=== PATIENT | female | born 1955 | race Caucasian/White ===

== ENCOUNTER 2018-07-02 16:33 | Emergency (ER) | payer MEDICARE, BC, OTHER ==
[~2018-07-02] VITALS: Ht 162.6 cm; Wt 81.0 kg
[~2018-07-02 16:33] MED LIST: IBUP-1985 PO; KEP500T PO; TEMA30CA PO
[2018-07-02] MEDS ORDERED: levetiracetam inj 1,000 MG in normal saline 100ml IV soln 90 ML IV ONE (18:35)
[2018-07-02] MEDS ORDERED: LEVE250T4 PO (18:39)
[2018-07-02 19:20] VITALS: BP 134/81
== END 2018-07-02 19:23 | disposition home or self-care (01) ==
LOC: ER 16:34
DX: S00.81XA Abrasion of other part of head, initial encounter (principal); G40.909 Epilepsy, unspecified, not intractable, without status epilepticus; I10 Essential (primary) hypertension; Z90.49 Acquired absence of other specified parts of digestive tract; Z90.710 Acquired absence of both cervix and uterus; Z98.890 Other specified postprocedural states; Z79.899 Other long term (current) drug therapy; W22.8XXA Striking against or struck by other objects, initial encounter; Y93.89 Activity, other specified; Y92.89 Other specified places as the place of occurrence of the external cause; Y99.9 Unspecified external cause status
CPT/HCPCS: 70450; 96374; 99284; J1953; J7030

== ENCOUNTER 2018-07-10 16:40 | Emergency (ER) | payer MEDICARE, BC ==
[~2018-07-10] VITALS: Ht 162.6 cm; Wt 74.5 kg
[~2018-07-10 16:40] MED LIST changes: +LEVE250T4 PO
[2018-07-10] MEDS ORDERED: buprenorphine/naloxone 8mg/2mg SL tablet SL ONE ×2 (17:15→18:20)
[2018-07-10] MEDS ORDERED: BUPR1FIL3 SL (18:29)
[2018-07-10 18:53] VITALS: BP 154/67
== END 2018-07-10 19:01 | disposition home or self-care (01) ==
LOC: ER 16:40
DX: F11.23 Opioid dependence with withdrawal (principal); R55 Syncope and collapse; F41.0 Panic disorder [episodic paroxysmal anxiety]; I10 Essential (primary) hypertension; G89.29 Other chronic pain; F41.9 Anxiety disorder, unspecified; F32.9 Major depressive disorder, single episode, unspecified; Z90.49 Acquired absence of other specified parts of digestive tract; Z90.710 Acquired absence of both cervix and uterus; Z98.890 Other specified postprocedural states; Z79.899 Other long term (current) drug therapy
CPT/HCPCS: 93005; 99283

== ENCOUNTER 2018-12-23 19:21 | Emergency (ER) | payer BC, MEDICARE ==
[~2018-12-23] VITALS: Ht 162.6 cm; Wt 75.9 kg
[2018-12-23 22:26] VITALS: BP 114/65
== END 2018-12-23 22:27 | disposition home or self-care (01) ==
LOC: ER 19:22
DX: S01.81XA Laceration without foreign body of other part of head, initial encounter (principal); I10 Essential (primary) hypertension; G89.29 Other chronic pain; Z79.1 Long term (current) use of non-steroidal anti-inflammatories (NSAID); Z79.899 Other long term (current) drug therapy; Z87.442 Personal history of urinary calculi; Z90.49 Acquired absence of other specified parts of digestive tract; Z90.710 Acquired absence of both cervix and uterus; Z98.890 Other specified postprocedural states; W18.39XA Other fall on same level, initial encounter; Y93.89 Activity, other specified; Y92.89 Other specified places as the place of occurrence of the external cause; Y99.8 Other external cause status
CPT/HCPCS: 12013; 70450; 99284

== ENCOUNTER 2019-02-02 09:44 | Inpatient (IN) | payer BC, MEDICARE ==
[~2019-02-02] VITALS: Ht 162.6 cm; Wt 75.9 kg
[2019-02-02] MEDS ORDERED: ondansetron/PF 4mg/2ml inj IV ONE (10:40)
[2019-02-02] MEDS ORDERED: normal saline 1000ML IV soln IVB ONE (10:40)
[2019-02-02] MEDS: morphine 4 MG/ML inj SYRINge IV PRN ×2 (11:07→14:08)
[2019-02-02 11:19] LABS: BASOPHILS % (AUTO) 0.2 % (0-1); EOSINOPHILS % (AUTO) 0.1 % (0-6); HEMATOCRIT 40.8 % (35.0-45.0); HEMOGLOBIN 13.4 g/dl (12.0-16.0); LYMPHOCYTES # (AUTO) 1.2 X10'3 (1.1-4.8); LYMPHOCYTES % (AUTO) 8.3 % (21-51); MEAN CORPUSCULAR HEMOGLOBIN 28.1 PG (27.0-31.0); MEAN CORPUSCULAR HGB CONC 32.9 g/dL (33.0-36.5); MEAN CORPUSCULAR VOLUME 85.6 FL (78-98); MEAN PLATELET VOLUME 7.5 FL (7.4-10.4); MONOCYTES # (AUTO) 0.6 X10'3 (0-0.9); NEUTROPHILS # (AUTO) 12.8 X10'3 (1.8-7.7); NEUTROPHILS % (AUTO) 87.4 % (42-75); PLATELET COUNT 336 X10'3 (140-440); RED BLOOD COUNT 4.77 X10'6 (4.20-5.60); RED CELL DISTRIBUTION WIDTH 13.9 % (11.5-14.5); WHITE BLOOD COUNT 14.6 X10'3 (4.5-11.0)
[2019-02-02 11:35] LABS: ALANINE AMINOTRANSFERASE 28 U/L (12-78); ALBUMIN 3.7 G/DL (3.4-5.0); ALBUMIN/GLOBULIN RATIO 0.9 (1.1-1.5); ALKALINE PHOSPHATASE 94 IU/L (46-116); ANION GAP 6 (8-16); ASPARTATE AMINO TRANSFERASE 22 U/L (10-37); BILIRUBIN,TOTAL 0.3 MG/DL (0.1-1.0); BLOOD UREA NITROGEN 13 MG/DL (7-18); BUN/CREATININE RATIO 17.3 (6.6-38.0); CALCIUM 9.3 MG/DL (8.5-10.1); CHLORIDE 102 MMOL/L (99-107); CREATININE 0.75 MG/DL (0.40-0.90); GLUCOSE 142 MG/DL (70-104); POTASSIUM 3.6 MMOL/L (3.5-5.1); SODIUM 140 MMOL/L (135-145); TOTAL CARBON DIOXIDE 31.9 MMOL/L (24-32); TOTAL PROTEIN 7.9 G/DL (6.4-8.2); eGFR 78 ML/MIN
[2019-02-02 12:31] LABS: CLARITY,URINE SLIGHTLY CLOUDY (Clear); COLOR,URINE YELLOW (Yellow); GLUCOSE, URINE NEGATIVE (Neg); KETONES,URINE 15 mg/dl (Neg); LEUKOCYTE ESTERASE ,URINE NEGATIVE (Neg); NITRITES, URINE NEGATIVE (Neg); OCCULT BLOOD,URINE NEGATIVE (Neg); PH,URINE 8.5 (4.8-8.0); PROTEIN,URINE 30 mg/dl (Neg); UA COLLECTION TYPE CLN CATCH MIDSTREAM; UROBILINOGEN,URINE 0.2 E.U/dL (0.2-1.0)
[2019-02-02 12:37] LABS: URINE AMPHETAMINE SCREEN NEGATIVE (Neg); URINE BARBITUATE SCREEN NEGATIVE (Neg); URINE BENZODIAZEPINES SCREEN NEGATIVE (Neg); URINE CANNABINOID SCREEN NEGATIVE (Neg); URINE COCAINE SCREEN NEGATIVE (Neg); URINE METHADONE SCREEN NEGATIVE (Neg); URINE OPIATE SCREEN POSITIVE (Neg); URINE PHENCYCLIDINE SCREEN NEGATIVE (Neg)
[2019-02-02 12:42] LABS: AMORPHOUS PHOSPHATES 3+; BACTERIA,URINE NONE SEEN /HPF (Neg); MUCUS STRANDS MANY /LPF (Neg); RBC,URINE NONE SEEN /HPF (0-2); SQUAMOUS EPITHELIAL CELL,UR MODERATE /LPF (FEW); WBC,URINE 0-4 /HPF (0-4)
[2019-02-02 12:43] LABS: HYALINE CASTS 0-3 /LPF (NEGATIVE)
[2019-02-02] MEDS ORDERED: morphine 2 MG/ML inj. syringe IV PRN ×2 (14:50)
[2019-02-02] MEDS ORDERED: ondansetron/PF 4mg/2ml inj IV PRN (14:50)
[2019-02-02] MEDS ORDERED: magnesium hydroxide 30ml (MOM) UD suspension PO PRN (14:50)
[2019-02-02] MEDS ORDERED: mag hydrox/Alum hydrox/simeth 30ml oral suspension PO PRN (14:50)
[2019-02-02] MEDS ORDERED: acetaminophen 325mg tablet PO PRN (14:50)
[2019-02-02] MEDS ORDERED: BUPR1TAB36 PO (15:06)
[2019-02-02] MEDS ORDERED: NORT10CA2 PO (15:06)
[2019-02-02] MEDS ORDERED: ASPI-611 PO (15:06)
[2019-02-02] MEDS ORDERED: THYR60TA2 PO (15:06)
[2019-02-02] MEDS ORDERED: DIVA250T8 PO (15:06)
[2019-02-02] MEDS ORDERED: ENAL10TA PO (15:06)
[2019-02-02] MEDS ORDERED: TRAZ-219 PO (15:06)
--- NOTE | 2019-02-02 15:35 | NUR ---
sister katelynn [phone]
[2019-02-02] MEDS: normal saline 1000ml 1,000 ML IV SCH (15:37)
--- NOTE | 2019-02-02 16:45 | NUR ---
received report from SALAZAR evans. awaiting patient arrival.
--- NOTE | 2019-02-02 17:15 | NUR ---
BP 174/90 harriett ARNETT, IV hydralazine given per orders.
[2019-02-02 17:44] VITALS: BP 174/90
[2019-02-02] MEDS ORDERED: hydrALAZINE 20mg/ml inj. IV PRN (17:50)
--- NOTE | 2019-02-02 18:05 | NUR ---
Problems reprioritized. Patient report given, questions answered & plan of care reviewed with SALAZAR Sue.
[2019-02-02 20:00] VITALS: BP 145/74
[2019-02-02] MEDS: nortriptyline 10mg capsule PO SCH (21:58)
[2019-02-02] MEDS: traZODone 50mg tablet PO SCH (21:58)
[2019-02-02] MEDS: temazepam 15mg capsule PO PRN (21:59)
[2019-02-02] MEDS: divalproex sod 250mg ER (24-hour) tablet PO SCH (22:01)
--- NOTE | 2019-02-02 22:06 | NUR ---
N/G CLAMPED FOR NIGHT PO MEDS
[2019-02-03] VITALS: BP 101/71
[2019-02-03] MEDS: normal saline 1000ml 1,000 ML IV SCH ×4 (01:01→21:52)
[2019-02-03] MEDS ORDERED: diatr meglu/diatrizoate 30ml oral sol.-(3 dose) bottle PO SCH (03:00)
[2019-02-03 05:57] LABS: BASOPHILS % (AUTO) 0.3 % (0-1); EOSINOPHILS # (AUTO) 0.1 X10'3 (0-0.9); EOSINOPHILS % (AUTO) 0.8 % (0-6); HEMATOCRIT 35.2 % (35.0-45.0); HEMOGLOBIN 11.8 g/dl (12.0-16.0); LYMPHOCYTES # (AUTO) 2.5 X10'3 (1.1-4.8); LYMPHOCYTES % (AUTO) 24.3 % (21-51); MEAN CORPUSCULAR HEMOGLOBIN 28.9 PG (27.0-31.0); MEAN CORPUSCULAR HGB CONC 33.6 g/dL (33.0-36.5); MEAN CORPUSCULAR VOLUME 86.1 FL (78-98); MEAN PLATELET VOLUME 7.4 FL (7.4-10.4); MONOCYTES # (AUTO) 0.8 X10'3 (0-0.9); MONOCYTES % (AUTO) 7.3 % (2-12); NEUTROPHILS % (AUTO) 67.3 % (42-75); PLATELET COUNT 283 X10'3 (140-440); RED BLOOD COUNT 4.09 X10'6 (4.20-5.60); RED CELL DISTRIBUTION WIDTH 14.1 % (11.5-14.5); WHITE BLOOD COUNT 10.5 X10'3 (4.5-11.0)
--- NOTE | 2019-02-03 06:18 | NUR ---
Problems reprioritized. Patient report given, questions answered & plan of care reviewed with SALAZAR Moreland.
[2019-02-03 06:46] LABS: ANION GAP 7 (8-16); BLOOD UREA NITROGEN 12 MG/DL (7-18); BUN/CREATININE RATIO 17.1 (6.6-38.0); CALCIUM 7.9 MG/DL (8.5-10.1); CHLORIDE 106 MMOL/L (99-107); GLUCOSE 92 MG/DL (70-104); POTASSIUM 3.5 MMOL/L (3.5-5.1); SODIUM 141 MMOL/L (135-145); TOTAL CARBON DIOXIDE 27.7 MMOL/L (24-32); eGFR 84 ML/MIN
[2019-02-03 07:10] VITALS: BP 120/68
[2019-02-03] MEDS: diatr meglu/diatrizoate 30ml oral sol.-(3 dose) bottle PO SCH ×3 (07:32→10:30)
[2019-02-03] MEDS: divalproex sod 250mg ER (24-hour) tablet PO SCH ×2 (07:33→20:40)
[2019-02-03] MEDS: thyroid, pork 30mg tablet PO SCH (07:34)
[2019-02-03] MEDS: lisinopril 10 MG tablet PO SCH (07:34)
[2019-02-03] MEDS ORDERED: buprenorphine/naloxone 8mg/2mg SL tablet SL SCH (08:00)
--- NOTE | 2019-02-03 11:22 | NUR ---
Patient back from CT scan. IV re-connected and NG hooked back to low, continuous suction.
[2019-02-03 11:30] VITALS: BP 152/75
--- NOTE | 2019-02-03 18:11 | NUR ---
Problems reprioritized. Patient report given, questions answered & plan of care reviewed with SALAZAR NAVAS.
[2019-02-03 20:00] VITALS: BP 154/76
[2019-02-03] MEDS: temazepam 15mg capsule PO PRN (20:40)
[2019-02-03] MEDS: nortriptyline 10mg capsule PO SCH (20:40)
[2019-02-03] MEDS: traZODone 50mg tablet PO SCH (20:40)
[2019-02-03 23:30] VITALS: BP 146/94
--- NOTE | 2019-02-03 23:39 | NUR ---
Patient walking from restroom to bed became unresponsive and had slight convulsing. RN at side to assist to bed. Patient unresponsive for approximately two minutes. Patient came to and states "I was riding a horse". Reoriented patient. VSS. ARNETT notified.
[2019-02-03] MEDS ORDERED: LORazepam 1 MG tablet PO ONE (23:45)
[2019-02-04] VITALS: BP 122/63
[2019-02-04 04:50] LABS: BASOPHILS % (AUTO) 0.3 % (0-1); EOSINOPHILS # (AUTO) 0.2 X10'3 (0-0.9); EOSINOPHILS % (AUTO) 2.9 % (0-6); HEMATOCRIT 30.8 % (35.0-45.0); HEMOGLOBIN 10.4 g/dl (12.0-16.0); LYMPHOCYTES # (AUTO) 1.9 X10'3 (1.1-4.8); LYMPHOCYTES % (AUTO) 24.4 % (21-51); MEAN CORPUSCULAR HEMOGLOBIN 28.8 PG (27.0-31.0); MEAN CORPUSCULAR HGB CONC 33.7 g/dL (33.0-36.5); MEAN CORPUSCULAR VOLUME 85.5 FL (78-98); MEAN PLATELET VOLUME 7.4 FL (7.4-10.4); MONOCYTES # (AUTO) 0.5 X10'3 (0-0.9); MONOCYTES % (AUTO) 6.7 % (2-12); NEUTROPHILS # (AUTO) 5.2 X10'3 (1.8-7.7); NEUTROPHILS % (AUTO) 65.7 % (42-75); PLATELET COUNT 248 X10'3 (140-440)
[2019-02-04 04:59] LABS: ALBUMIN 2.5 G/DL (3.4-5.0); ANION GAP 6 (8-16); BLOOD UREA NITROGEN 7 MG/DL (7-18); BUN/CREATININE RATIO 12.5 (6.6-38.0); CALCIUM 7.6 MG/DL (8.5-10.1); CHLORIDE 109 MMOL/L (99-107); CREATININE 0.56 MG/DL (0.40-0.90); GLUCOSE 87 MG/DL (70-104); POTASSIUM 3.6 MMOL/L (3.5-5.1); SODIUM 142 MMOL/L (135-145); TOTAL CARBON DIOXIDE 27.3 MMOL/L (24-32); eGFR > 90 ML/MIN
--- NOTE | 2019-02-04 06:23 | NUR ---
Problems reprioritized. Patient report given, questions answered & plan of care reviewed with SALAZAR Souza.
--- NOTE | 2019-02-04 06:25 | NUR ---
Patient in room [facility]. I have received report from Linette Bain RN and had the opportunity to ask questions and assume patient care.
[2019-02-04 07:00] VITALS: BP 135/73
[2019-02-04] MEDS: divalproex sod 250mg ER (24-hour) tablet PO SCH (08:38)
[2019-02-04] MEDS: thyroid, pork 30mg tablet PO SCH (08:38)
[2019-02-04] MEDS: lisinopril 10 MG tablet PO SCH (08:38)
[2019-02-04] MEDS ORDERED: buprenorphine/naloxone 2-0.5mg sublingual tablet SL SCH (08:45)
[2019-02-04] MEDS: normal saline 1000ml 1,000 ML IV SCH (08:45)
[2019-02-04] MEDS ORDERED: buprenorphine/naloxone 8mg/2mg SL tablet SL SCH (08:46)
--- NOTE | 2019-02-04 09:09 | NUR ---
Patient requested to take her Suboxone pills at noon time today instead of now. Pharmacy notified. Suboxone pills returned to the return bin
--- NOTE | 2019-02-04 10:26 | NUR ---
Initial: Pt admit with SBO, now resolved with no evidence of SBO in repeat CT. LBM 02/03. Diet has been advanced to clear liquid with good PO intake. Recommend diet advancement to heart healthy as medically indicated. No edema or wounds. No N/V per MD notes. No nutrition diagnosis at this time. Will continue to follow. Recommendations: 1) Advance to heart healthy diet as medically indicated 2) Wt per rx Addendum: 02/04/19 at [address] Amended: Links added.
[2019-02-04 11:00] VITALS: BP 123/69
--- NOTE | 2019-02-04 13:10 | NUR ---
Discharged patient home, discharge instructions given to patient. Patient verbalized understanding of all instructions made. Peripheral IV catheter removed, tip intact. Instructed patient to ensure she has all her belongings with her before leaving the hospital.
== END 2019-02-04 13:09 | disposition home or self-care (01) | DRG 390 ==
LOC: ER 09:44 → SUR 3N 16:54 → CMPBEDREQ 21:00
PROVIDERS: ADMIT Family Medicine; ATTEND Family Medicine
PROC: 0D9670Z Drainage of Stomach with Drainage Device, Via Natural or Artificial Opening (ICD-10-PCS; principal; 2019-02-02)
DX: K56.600 Partial intestinal obstruction, unspecified as to cause (principal); G40.909 Epilepsy, unspecified, not intractable, without status epilepticus; E03.9 Hypothyroidism, unspecified; G89.4 Chronic pain syndrome; F32.9 Major depressive disorder, single episode, unspecified; F41.9 Anxiety disorder, unspecified; I10 Essential (primary) hypertension; Z87.442 Personal history of urinary calculi; Z90.710 Acquired absence of both cervix and uterus
CPT/HCPCS: 36415; 74176; 80048; 80053; 80305; 81001; 85025; 87081; 93005; 96361; 96374; 96375; 99285; G0378; J0360; J2270; J2405; J7030; Q9963

== ENCOUNTER 2020-02-19 23:48 | Emergency (ER) | payer BC, MEDICARE ==
[~2020-02-19] VITALS: Ht 162.6 cm; Wt 73.6 kg
[~2020-02-19 23:48] MED LIST changes: +ASPI-611 PO; +BUPR1TAB45 PO; +DIVA250T8 PO; +ENAL10TA PO; -IBUP-1985 PO; -KEP500T PO; -LEVE250T4 PO; +NORT10CA2 PO; -TEMA30CA PO; +THYR60TA2 PO; +TRAZ-256 PO; +levetiracetam-NS 1000mg/100ml 100 ML IV ONE
[2020-02-19] MEDS ORDERED: ketorolac trometh. 30mg/ml inj. IV ONE (23:55)
[2020-02-19] MEDS ORDERED: normal saline 1000ML IV soln IV ONE (23:55)
[2020-02-19] MEDS ORDERED: ondansetron/PF 4mg/2ml inj IV ONE (23:55)
[2020-02-20] MEDS ORDERED: levetiracetam inj 1,000 MG in normal saline 100ml IV soln 90 ML IV ONE ×2
[2020-02-20 00:49] LABS: CLARITY,URINE CLOUDY (Clear); COLOR,URINE YELLOW (Yellow); GLUCOSE, URINE NEGATIVE (Neg); KETONES,URINE 15 mg/dl (Neg); LEUKOCYTE ESTERASE ,URINE NEGATIVE (Neg); NITRITES, URINE NEGATIVE (Neg); OCCULT BLOOD,URINE NEGATIVE (Neg); PROTEIN,URINE TRACE mg/dl (Neg); UROBILINOGEN,URINE 0.2 E.U/dL (0.2-1.0)
[2020-02-20 00:56] LABS: UA COLLECTION TYPE CLN CATCH MIDSTREAM; WBC,URINE 0-4 /HPF (0-4)
[2020-02-20 00:57] LABS: AMORPHOUS PHOSPHATES 3+; BACTERIA,URINE FEW /HPF (Neg); RBC,URINE NONE SEEN /HPF (0-2); SQUAMOUS EPITHELIAL CELL,UR FEW /LPF (FEW)
[2020-02-20 01:40] LABS: RED CELL DISTRIBUTION WIDTH 14.7 % (11.5-14.5)
[2020-02-20 01:43] LABS: HEMATOCRIT 48.8 % (35.0-45.0); HEMOGLOBIN 16.2 g/dl (12.0-16.0); MEAN CORPUSCULAR HEMOGLOBIN 28.3 PG (27.0-31.0); MEAN CORPUSCULAR HGB CONC 33.2 g/dL (33.0-36.5); MEAN CORPUSCULAR VOLUME 85.3 FL (78-98); MEAN PLATELET VOLUME 7.7 FL (7.4-10.4); PLATELET COUNT 218 X10'3 (140-440); RED BLOOD COUNT 5.72 X10'6 (4.20-5.60); WHITE BLOOD COUNT 18.3 X10'3 (4.5-11.0)
[2020-02-20 02:11] LABS: ALANINE AMINOTRANSFERASE 23 U/L (12-78); ALBUMIN/GLOBULIN RATIO 0.8 (1.1-1.5); ALKALINE PHOSPHATASE 104 IU/L (46-116); ANION GAP 8 (8-16); ASPARTATE AMINO TRANSFERASE 36 U/L (10-37); BILIRUBIN,TOTAL 0.5 MG/DL (0.1-1.0); BLOOD UREA NITROGEN 15 MG/DL (7-18); BUN/CREATININE RATIO 17.2 (6.6-38.0); CALCIUM 9.9 MG/DL (8.5-10.1); CHLORIDE 100 MMOL/L (99-107); CREATININE 0.87 MG/DL (0.40-0.90); GLUCOSE 142 MG/DL (70-104); SODIUM 139 MMOL/L (135-145); TOTAL PROTEIN 8.8 G/DL (6.4-8.2); eGFR 65 ML/MIN
[2020-02-20 02:14] LABS: TROPONIN I < 0.04 NG/ML (0.0-0.05)
[2020-02-20 02:35] VITALS: BP 159/86
[2020-02-20 02:40] LABS: POTASSIUM 4.1 MMOL/L (3.5-5.1)
[2020-02-20 02:44] LABS: TOTAL CELLS COUNTED 100
[2020-02-20] MEDS ORDERED: ONDA8TAB6 PO (02:44)
[2020-02-20 02:45] LABS: PLATELET ESTIMATE NORMAL
== END 2020-02-20 03:10 | disposition home or self-care (01) ==
LOC: ER 23:48
DX: R11.2 Nausea with vomiting, unspecified (principal); R53.1 Weakness; R56.9 Unspecified convulsions; I10 Essential (primary) hypertension; F41.9 Anxiety disorder, unspecified; F32.9 Major depressive disorder, single episode, unspecified; G89.29 Other chronic pain; Z90.49 Acquired absence of other specified parts of digestive tract; Z90.710 Acquired absence of both cervix and uterus; Z98.890 Other specified postprocedural states; Z72.89 Other problems related to lifestyle; Z79.82 Long term (current) use of aspirin; Z79.899 Other long term (current) drug therapy
CPT/HCPCS: 36415; 71045; 80053; 81001; 83605; 83735; 84145; 84484; 85025; 87040; 93005; 96361; 96374; 96375; 99285; J1885; J2405; J7030

== ENCOUNTER 2022-12-15 21:42 | Emergency (ER) | payer MEDICARE, BC ==
[~2022-12-15] VITALS: Ht 162.6 cm; Wt 68.2 kg
[~2022-12-15 21:42] MED LIST changes: +ENAL-78 PO; -ENAL10TA PO; +ONDA8TAB6 PO; -levetiracetam-NS 1000mg/100ml 100 ML IV ONE
[2022-12-15 21:46] VITALS: BP 151/78
--- NOTE | 2022-12-15 22:03 | NUR ---
ice pack to wound
[2022-12-16] MEDS ORDERED: iohexol 350MG/ML 100ml bottle IV ONE (13:13)
== END 2022-12-15 22:55 | disposition home or self-care (01) ==
LOC: ER 21:42
DX: S00.83XA Contusion of other part of head, initial encounter (principal); I10 Essential (primary) hypertension; Z90.710 Acquired absence of both cervix and uterus; W19.XXXA Unspecified fall, initial encounter; Y93.89 Activity, other specified; Y92.89 Other specified places as the place of occurrence of the external cause; Y99.8 Other external cause status
CPT/HCPCS: 70450; 72125; 99284; Q9967

== ENCOUNTER 2023-09-14 12:51 | Emergency (ER) | payer MEDICARE, BC ==
[~2023-09-14] VITALS: Ht 162.6 cm; Wt 67.0 kg
[~2023-09-14 12:51] MED LIST changes: +DULO60CA65 PO; +ESCI-8 PO; +LISI1TAB53 PO; +NORT10CA81 PO; +PANT20TA18 PO; +TRAZ150T78 PO
[2023-09-14 13:56] VITALS: TEMP 98.6
[2023-09-14 14:41] VITALS: BP 115/64; PULSE 83; RESP 15; O2SAT 97
[2023-09-14 15:29] LABS: BASOPHILS % (AUTO) 0.5 % (0-1); EOSINOPHILS # (AUTO) 0.1 X10'3 (0-0.9); HEMOGLOBIN 10.7 g/dl (12.0-16.0); LYMPHOCYTES # (AUTO) 1.9 X10'3 (1.1-4.8); LYMPHOCYTES % (AUTO) 25.2 % (21-51); MEAN CORPUSCULAR HEMOGLOBIN 28.5 PG (27.0-31.0); MEAN CORPUSCULAR HGB CONC 33.4 g/dL (33.0-36.5); MEAN CORPUSCULAR VOLUME 85.4 FL (78-98); MEAN PLATELET VOLUME 7.1 FL (7.4-10.4); MONOCYTES # (AUTO) 0.5 X10'3 (0-0.9); MONOCYTES % (AUTO) 6.7 % (2-12); NEUTROPHILS # (AUTO) 4.9 X10'3 (1.8-7.7); NEUTROPHILS % (AUTO) 65.6 % (42-75); PLATELET COUNT 337 X10'3 (140-440); RED BLOOD COUNT 3.75 X10'6 (4.20-5.60); RED CELL DISTRIBUTION WIDTH 14.2 % (11.5-14.5); WHITE BLOOD COUNT 7.5 X10'3 (4.5-11.0)
[2023-09-14 15:48] LABS: ALBUMIN 3.5 G/DL (3.4-5.0); ANION GAP 7 (8-16); BLOOD UREA NITROGEN 23 MG/DL (7-18); BUN/CREATININE RATIO 16.3 (10.0-20.0); CHLORIDE 105 MMOL/L (99-107); CREATININE 1.41 MG/DL (0.40-0.90); GLUCOSE 97 MG/DL (70-104); POTASSIUM 4.5 MMOL/L (3.5-5.1); SODIUM 143 MMOL/L (135-145); TOTAL CARBON DIOXIDE 31.4 MMOL/L (24-32); eCRCL 33 ML/MIN; eGFR 37 ML/MIN
== END 2023-09-14 16:42 | disposition home or self-care (01) ==
LOC: ER 12:51
DX: R20.0 Anesthesia of skin (principal); I10 Essential (primary) hypertension; F41.9 Anxiety disorder, unspecified; F32.A Depression, unspecified; Z90.49 Acquired absence of other specified parts of digestive tract; Z90.710 Acquired absence of both cervix and uterus; Z72.89 Other problems related to lifestyle; Z79.899 Other long term (current) drug therapy; Z79.82 Long term (current) use of aspirin
CPT/HCPCS: 36415; 73030; 80048; 84484; 85025; 93005; 99285

== ENCOUNTER 2024-03-07 14:35 | Emergency (ER) | payer MEDICARE, BC ==
[~2024-03-07] VITALS: Ht 162.6 cm; Wt 71.8 kg
[2024-03-07 15:11] LABS: BASOPHILS % (AUTO) 0.3 % (0-1); EOSINOPHILS # (AUTO) 0.1 X10'3 (0-0.9); EOSINOPHILS % (AUTO) 1.1 % (0-6); HEMATOCRIT 29.7 % (35.0-45.0); HEMOGLOBIN 9.9 g/dl (12.0-16.0); LYMPHOCYTES # (AUTO) 1.4 X10'3 (1.1-4.8); LYMPHOCYTES % (AUTO) 18.1 % (21-51); MEAN CORPUSCULAR HEMOGLOBIN 28.7 PG (27.0-31.0); MEAN CORPUSCULAR HGB CONC 33.3 g/dL (33.0-36.5); MEAN PLATELET VOLUME 7.4 FL (7.4-10.4); MONOCYTES # (AUTO) 0.5 X10'3 (0-0.9); MONOCYTES % (AUTO) 6.3 % (2-12); NEUTROPHILS # (AUTO) 5.7 X10'3 (1.8-7.7); NEUTROPHILS % (AUTO) 74.2 % (42-75); PLATELET COUNT 291 X10'3 (140-440); RED BLOOD COUNT 3.46 X10'6 (4.20-5.60); RED CELL DISTRIBUTION WIDTH 13.9 % (11.5-14.5); WHITE BLOOD COUNT 7.8 X10'3 (4.5-11.0)
[2024-03-07] MEDS: normal saline 1000ml 1,000 ML IV ONE ×2 (15:11→16:36)
[2024-03-07 15:25] LABS: ALANINE AMINOTRANSFERASE 22 U/L (12-78); ALBUMIN 3.4 G/DL (3.4-5.0); ALKALINE PHOSPHATASE 57 IU/L (46-116); ANION GAP 8 (8-16); ASPARTATE AMINO TRANSFERASE 25 U/L (10-37); BILIRUBIN,TOTAL 0.6 MG/DL (0.1-1.0); BLOOD UREA NITROGEN 31 MG/DL (7-18); BUN/CREATININE RATIO 11.5 (10.0-20.0); CALCIUM 8.1 MG/DL (8.5-10.1); CHLORIDE 101 MMOL/L (99-107); CREATININE 2.69 MG/DL (0.40-0.90); GLUCOSE 106 MG/DL (70-104); POTASSIUM 3.9 MMOL/L (3.5-5.1); SODIUM 135 MMOL/L (135-145); TOTAL PROTEIN 6.7 G/DL (6.4-8.2); eCRCL 17 ML/MIN; eGFR 18 ML/MIN
[2024-03-07 15:26] LABS: MAGNESIUM 1.8 MG/DL (1.5-2.4)
[2024-03-07 16:48] LABS: BILIRUBIN,URINE NEGATIVE (Neg); CLARITY,URINE CLEAR (Clear); COLOR,URINE YELLOW (Yellow); GLUCOSE, URINE NEGATIVE (Neg); KETONES,URINE NEGATIVE (Neg); LEUKOCYTE ESTERASE ,URINE MODERATE (Neg); NITRITES, URINE NEGATIVE (Neg); OCCULT BLOOD,URINE NEGATIVE (Neg); PH,URINE 5.5 (4.8-8.0); PROTEIN,URINE NEGATIVE (Neg); UROBILINOGEN,URINE 0.2 E.U/dL (0.2-1.0)
[2024-03-07 16:52] LABS: UA COLLECTION TYPE CLN CATCH MIDSTREAM
[2024-03-07 16:53] LABS: BACTERIA,URINE 1+ /HPF (Neg); MUCUS STRANDS NONE SEEN /LPF (Neg); RBC,URINE 0 /HPF (0-2); SQUAMOUS EPITHELIAL CELL,UR MODERATE /LPF (FEW)
[2024-03-07] MEDS: cephalexin 250mg capsule PO ONE (17:37)
[2024-03-07] MEDS ORDERED: CEFD300C3 PO (17:52)
[2024-03-07 18:03] LABS: ALBUMIN 3.3 G/DL (3.4-5.0); ANION GAP 7 (8-16); BLOOD UREA NITROGEN 28 MG/DL (7-18); BUN/CREATININE RATIO 11.8 (10.0-20.0); CALCIUM 7.6 MG/DL (8.5-10.1); CHLORIDE 106 MMOL/L (99-107); CREATININE 2.37 MG/DL (0.40-0.90); GLUCOSE 96 MG/DL (70-104); SODIUM 138 MMOL/L (135-145); TOTAL CARBON DIOXIDE 24.6 MMOL/L (24-32); eCRCL 19 ML/MIN; eGFR 20 ML/MIN
[2024-03-07 19:02] VITALS: BP 89/68; PULSE 94; RESP 14; TEMP 98.2; O2SAT 95
== END 2024-03-07 19:10 | disposition home or self-care (01) ==
LOC: ER 14:35
DX: R55 Syncope and collapse (principal); E86.0 Dehydration; N39.0 Urinary tract infection, site not specified; I10 Essential (primary) hypertension; E07.9 Disorder of thyroid, unspecified; G89.29 Other chronic pain; F41.9 Anxiety disorder, unspecified; F32.A Depression, unspecified; Z79.82 Long term (current) use of aspirin; Z79.899 Other long term (current) drug therapy; Z72.89 Other problems related to lifestyle; Z90.49 Acquired absence of other specified parts of digestive tract; Z90.710 Acquired absence of both cervix and uterus; Z98.890 Other specified postprocedural states; Z87.442 Personal history of urinary calculi
CPT/HCPCS: 36415; 80048; 80053; 81001; 83735; 84484; 85025; 93005; 96360; 96361; 99285; J7030

== ENCOUNTER 2024-09-04 14:19 | Inpatient (IN) | payer MEDICARE, BC ==
[~2024-09-04] VITALS: Ht 162.6 cm; Wt 70.5 kg
[2024-09-04 15:56] LABS: BASOPHILS % (AUTO) 0.5 % (0-1); EOSINOPHILS # (AUTO) 0.1 X10'3 (0-0.9); HEMATOCRIT 27.4 % (35.0-45.0); HEMOGLOBIN 9.2 g/dl (12.0-16.0); MEAN CORPUSCULAR HEMOGLOBIN 28.4 PG (27.0-31.0); MEAN CORPUSCULAR HGB CONC 33.5 g/dL (33.0-36.5); MEAN CORPUSCULAR VOLUME 84.7 FL (78-98); MEAN PLATELET VOLUME 7.7 FL (7.4-10.4); MONOCYTES # (AUTO) 0.9 X10'3 (0-0.9); MONOCYTES % (AUTO) 12.8 % (2-12); NEUTROPHILS # (AUTO) 4.7 X10'3 (1.8-7.7); NEUTROPHILS % (AUTO) 70.7 % (42-75); PLATELET COUNT 246 X10'3 (140-440); RED BLOOD COUNT 3.24 X10'6 (4.20-5.60); RED CELL DISTRIBUTION WIDTH 14.1 % (11.5-14.5); WHITE BLOOD COUNT 6.7 X10'3 (4.5-11.0)
[2024-09-04 16:14] LABS: ALANINE AMINOTRANSFERASE 30 U/L (12-78); ALBUMIN 2.6 G/DL (3.4-5.0); ALBUMIN/GLOBULIN RATIO 0.7 (1.1-1.5); ALKALINE PHOSPHATASE 73 IU/L (46-116); ANION GAP 8 (8-16); ASPARTATE AMINO TRANSFERASE 33 U/L (10-37); BILIRUBIN,TOTAL 0.2 MG/DL (0.1-1.0); BLOOD UREA NITROGEN 40 MG/DL (7-18); BUN/CREATININE RATIO 21.5 (10.0-20.0); CALCIUM 8.3 MG/DL (8.5-10.1); CHLORIDE 105 MMOL/L (99-107); CREATININE 1.86 MG/DL (0.40-0.90); GLUCOSE 107 MG/DL (70-104); PRO BRAIN NATRIURETIC PEPTIDE 248 PG/ML (0-125); SODIUM 138 MMOL/L (135-145); THYROID STIMULATING HORMONE 0.33 ulU/ml (0.34-4.50); TOTAL CARBON DIOXIDE 25.2 MMOL/L (24-32); TOTAL PROTEIN 6.5 G/DL (6.4-8.2); eCRCL 25 ML/MIN; eGFR 27 ML/MIN
[2024-09-04] MEDS: potassium Cl 20 mEq SR tablet PO STA (17:16)
[2024-09-04] MEDS ORDERED: MELO-102 PO (17:56)
[2024-09-04] MEDS ORDERED: mag hydrox/Alum hydrox/simeth 30ml oral suspension PO PRN (18:20)
[2024-09-04] MEDS ORDERED: acetaminophen 650mg rectal suppository RC PRN (18:20)
[2024-09-04] MEDS ORDERED: potassium Cl 20 mEq SR tablet PO PRN ×2 (18:20)
[2024-09-04] MEDS ORDERED: HYDROcodone/acetaminophen 10/325mg tab PO PRN (18:20)
[2024-09-04] MEDS ORDERED: magnesium sulf-water 2g/50mL 50 ML IV PRN (18:20)
[2024-09-04] MEDS ORDERED: magnesium Cl slow-release 64mg tablet PO PRN (18:20)
[2024-09-04] MEDS ORDERED: diphenhydrAMINE 25mg capsule PO PRN (18:20)
[2024-09-04] MEDS ORDERED: ondansetron 4mg rapidly disintigrating tab PO PRN (18:20)
[2024-09-04] MEDS ORDERED: HYDROcodone/acetaminophen 5mg/325mg tablet PO PRN (18:20)
[2024-09-04] MEDS ORDERED: diphenhydrAMINE 50 mg/ml inj IV PRN (18:20)
[2024-09-04] MEDS ORDERED: ondansetron/PF 4mg/2ml inj IV PRN (18:20)
[2024-09-04] MEDS ORDERED: magnesium sulf-water 4G/100mL 100 ML IV PRN (18:20)
[2024-09-04] MEDS ORDERED: potassium Cl 40MEQ/1/2NS 520ml 520 ML IV PRN (18:20)
[2024-09-04] MEDS ORDERED: bisacodyl 10mg suppository rectal RC PRN (18:20)
[2024-09-04] MEDS ORDERED: morphine 2 MG/ML inj. syringe IV PRN ×2 (18:20)
[2024-09-04] MEDS ORDERED: magnesium hydroxide 30ml (MOM) UD suspension PO PRN (18:20)
[2024-09-04] MEDS ORDERED: acetaminophen 325mg tablet PO PRN ×2 (18:20)
[2024-09-04] MEDS: regadenoson 0.4mg/5ml syringe IV ONE (18:30)
[2024-09-04 18:51] LABS: MAGNESIUM 2.1 MG/DL (1.5-2.4); PHOSPHORUS 2.1 MG/DL (2.3-4.5)
[2024-09-04 18:56] LABS: BILIRUBIN,URINE NEGATIVE (Neg); CLARITY,URINE CLEAR (Clear); COLOR,URINE YELLOW (Yellow); GLUCOSE, URINE NEGATIVE (Neg); KETONES,URINE NEGATIVE (Neg); LEUKOCYTE ESTERASE ,URINE MODERATE (Neg); NITRITES, URINE POSITIVE (Neg); OCCULT BLOOD,URINE NEGATIVE (Neg); PH,URINE 5.5 (4.8-8.0); PROTEIN,URINE NEGATIVE (Neg); UROBILINOGEN,URINE 0.2 E.U/dL (0.2-1.0)
[2024-09-04 18:58] LABS: APTT 24 SECONDS (22-32); PROTHROMBIN TIME 10.2 SECONDS (9.0-12.0)
[2024-09-04] MEDS: potassium Cl 20mEq in NS 1,000 ML IV SCH (18:58)
[2024-09-04] MEDS: LORazepam 1 MG tablet PO ONE (19:07)
[2024-09-04 19:09] LABS: D-DIMER 1.29 MG/L FEU (0-0.50)
[2024-09-04] MEDS: ringers solution, lacted 1,000 ML IV ONE (19:18)
[2024-09-04 19:24] LABS: UA COLLECTION TYPE CLN CATCH MIDSTREAM
[2024-09-04 19:26] LABS: BACTERIA,URINE 4+ /HPF (Neg); RBC,URINE 0-2 /HPF (0-2); SQUAMOUS EPITHELIAL CELL,UR FEW /LPF (FEW); WBC,URINE TNTC /HPF (0-4)
[2024-09-04] MEDS: docusate sod 100mg capsule PO SCH (20:00)
[2024-09-04] MEDS: K and/or MAG REPLACEMENT MC SCH (20:00)
[2024-09-04] MEDS ORDERED: temazepam 15mg capsule PO PRN (21:00)
[2024-09-04 23:30] VITALS: BP 141/54; PULSE 82; RESP 16; TEMP 97.2; O2SAT 100
[2024-09-04] MEDS ORDERED: BUPR1TAB45 SL (23:43)
[2024-09-04] MEDS ORDERED: CHOL100040 PO (23:43)
[2024-09-04] MEDS ORDERED: CYAN-116 PO (23:43)
[2024-09-04] MEDS ORDERED: MULT-1085 PO (23:43)
[2024-09-05] VITALS (10 sets, daily range): BP systolic 98–134; BP diastolic 38–62; PULSE 73–99; RESP 12–20; TEMP 97.2–97.8; O2SAT 95–99
[2024-09-05] MEDS: heparin, porcine 5000 units/ml vial SQ SCH (00:30)
[2024-09-05 06:04] LABS: BASOPHILS % (AUTO) 0.5 % (0-1); EOSINOPHILS # (AUTO) 0.2 X10'3 (0-0.9); EOSINOPHILS % (AUTO) 2.6 % (0-6); HEMATOCRIT 25.9 % (35.0-45.0); HEMOGLOBIN 8.8 g/dl (12.0-16.0); LYMPHOCYTES # (AUTO) 1.6 X10'3 (1.1-4.8); MEAN CORPUSCULAR HEMOGLOBIN 28.7 PG (27.0-31.0); MEAN CORPUSCULAR HGB CONC 33.8 g/dL (33.0-36.5); MEAN PLATELET VOLUME 7.5 FL (7.4-10.4); MONOCYTES # (AUTO) 0.7 X10'3 (0-0.9); MONOCYTES % (AUTO) 11.3 % (2-12); NEUTROPHILS % (AUTO) 60.6 % (42-75); PLATELET COUNT 232 X10'3 (140-440); RED BLOOD COUNT 3.05 X10'6 (4.20-5.60); RED CELL DISTRIBUTION WIDTH 14.2 % (11.5-14.5); WHITE BLOOD COUNT 6.6 X10'3 (4.5-11.0)
[2024-09-05 06:41] LABS: ALANINE AMINOTRANSFERASE 30 U/L (12-78); ALBUMIN 2.4 G/DL (3.4-5.0); ALBUMIN/GLOBULIN RATIO 0.7 (1.1-1.5); ALKALINE PHOSPHATASE 58 IU/L (46-116); ANION GAP 6 (8-16); ASPARTATE AMINO TRANSFERASE 25 U/L (10-37); BILIRUBIN,TOTAL 0.2 MG/DL (0.1-1.0); BLOOD UREA NITROGEN 32 MG/DL (7-18); BUN/CREATININE RATIO 21.8 (10.0-20.0); CALCIUM 7.7 MG/DL (8.5-10.1); CHLORIDE 111 MMOL/L (99-107); CHOL/HDL RATIO 2.7 (0.00-4.99); CHOLESTEROL 194 MG/DL (0-200); CREATININE 1.47 MG/DL (0.40-0.90); GLUCOSE 84 MG/DL (70-104); HDL CHOLESTEROL 73 MG/DL (35-60); LDL CHOLESTEROL 94 MG/DL (50-100); MAGNESIUM 1.9 MG/DL (1.5-2.4); POTASSIUM 4.5 MMOL/L (3.5-5.1); SODIUM 141 MMOL/L (135-145); TOTAL CARBON DIOXIDE 24.4 MMOL/L (24-32); TOTAL PROTEIN 5.8 G/DL (6.4-8.2); TRIGLYCERIDES 77 MG/DL (20-135); eCRCL 31 ML/MIN; eGFR 35 ML/MIN
[2024-09-05] MEDS: pantoprazole 40mg Tablet.DR PO SCH (07:46)
[2024-09-05] MEDS: aspirin 81mg, enteric-coated 1 TAB TABLET.DR PO SCH (07:46)
[2024-09-05] MEDS: nitroGLYCERIN 0.1mg/hour patch TD SCH (07:48)
[2024-09-05] MEDS ORDERED: metoprolol tartrate 1mg/ml inj IV PRN (11:55)
[2024-09-05] MEDS ORDERED: nitroGLYCERIN 0.4mg SUBLingual tab SL PRN (11:55)
[2024-09-05] MEDS ORDERED: aminophylline 500mg/20ml vial IV PRN (11:55)
[2024-09-05] MEDS: regadenoson 0.4mg/5ml syringe IV PRN (14:57)
[2024-09-05] MEDS ORDERED: LISI2.5T14 PO (17:25)
[2024-09-05] MEDS ORDERED: CEPH250T PO (17:25)
== END 2024-09-05 17:43 | disposition home or self-care (01) | DRG 682 ==
LOC: ER 14:20 → ED HOLD 18:19 → UNDOADMIN 18:19 → ED HOLD 18:26 → PCU 3S 23:13 → UNDODISIN 09-05 17:43
PROVIDERS: ADMIT Family Medicine; ATTEND Family Medicine
PROC: 4A02XM4 Measurement of Cardiac Total Activity, External Approach (ICD-10-PCS; principal; 2024-09-05)
PROC: 3E033HZ Introduction of Radioactive Substance into Peripheral Vein, Percutaneous Approach (ICD-10-PCS; 2024-09-05)
DX: N17.9 Acute kidney failure, unspecified (principal); I50.33 Acute on chronic diastolic (congestive) heart failure; I13.0 Hypertensive heart and chronic kidney disease with heart failure and stage 1 through stage 4 chronic kidney disease, or unspecified chronic kidney disease; I20.9 Angina pectoris, unspecified; N18.9 Chronic kidney disease, unspecified; E87.6 Hypokalemia; G40.909 Epilepsy, unspecified, not intractable, without status epilepticus; E88.09 Other disorders of plasma-protein metabolism, not elsewhere classified; D64.9 Anemia, unspecified; E86.1 Hypovolemia; E03.9 Hypothyroidism, unspecified; F32.A Depression, unspecified; F41.9 Anxiety disorder, unspecified; G89.4 Chronic pain syndrome; Z87.442 Personal history of urinary calculi; Z79.82 Long term (current) use of aspirin; Z79.899 Other long term (current) drug therapy; I25.2 Old myocardial infarction; Z90.710 Acquired absence of both cervix and uterus; Z90.49 Acquired absence of other specified parts of digestive tract
CPT/HCPCS: 36415; 71045; 78452; 80053; 80061; 81001; 83036; 83735; 83880; 84100; 84443; 84484; 85025; 85379; 85610; 85730; 87077; 87081; 87088; 87186; 93005; 93017; 93306; 99285; A9500; G0378; J1644; J2785; J3480; J7120